=== PATIENT | male | born 1975 | race Caucasian/White ===

== ENCOUNTER 2019-02-14 08:53 | Day surgery (SDC) | payer OTHER ==
[2019-02-10 16:05] VITALS: BP 130/94
[2019-02-10 16:47] LABS: BASOPHIL # 0.1 10^3/uL (0.0-0.1); BASOPHIL % 0.6 % (0.0-0.2); EOSINOPHIL # 0.1 10^3/uL (0.0-0.2); EOSINOPHIL % 1.5 % (0.0-5.0); HEMOGLOBIN 18.7 g/dL (13.9-16.3); LYMPHOCYTES # 2.6 10^3/uL (1.0-4.8); LYMPHOCYTES % 26.8 % (24.0-44.0); MEAN CELL HGB 31.8 pg (26-34); MEAN CORP VOLUME 90.8 fL (78-100); MEAN PLATELET VOLUME 9.7 fL (7.8-11.0); MONOCYTES % 9.9 % (5.0-12.0); NEUTROPHIL # 5.9 10^3/uL (1.8-7.7); NEUTROPHILS % 60.9 % (41.0-85.0); RED CELL DISTRIBUTION WIDTH 14.3 % (11.5-14.5); WHITE BLOOD CELL 9.6 10^3/uL (4.5-11.0)
[2019-02-10 17:25] LABS: CALCIUM 9.3 mg/dL (8.4-10.5); CARBON DIOXIDE 23.2 mmol/L (20.0-32)
[~2019-02-14] VITALS: Ht 165.1 cm; Wt 72.6 kg
[2019-02-14] VITALS (10 sets, daily range): BP systolic 115–135; BP diastolic 48–96
[~2019-02-14 08:53] MED LIST: ALLERGY SHOT SQ; LACT1CAP PO; LACTATED RINGERS 1,000 ML ONE; MOVIPREP POWDER PACKET PO STA; TURM1CAP PO
[2019-02-14] MEDS: LACTATED RINGERS 1,000 ML IV SCH ×2 (09:09→13:48)
[2019-02-14] MEDS ORDERED: LIDOCAINE 2% VIAL ONE (11:21)
[2019-02-14] MEDS ORDERED: VERSED ONE (11:22)
[2019-02-14] MEDS ORDERED: DIPRIVAN IV ONE (11:22)
[2019-02-14] MEDS ORDERED: SUBLIMAZE ONE (11:22)
--- NOTE | 2019-02-14 12:36 | OPH ---
DATE OF SURGERY: 02/14/2019 BRIEF PROCEDURE NOTE PREOPERATIVE DIAGNOSES: History of colon polyps, need for surveillance as well as history of dyspepsia. POSTOPERATIVE DIAGNOSES: 1. Gastroduodenitis. 2. Inflamed colon, sigmoid and descending. 3. Check path on sigmoid polyps. SURGEON: Elvin Givens DO NAIL GALVANIZER: OR staff. ANESTHESIA: Total intravenous anesthesia by Tee Fish CRNA PROCEDURES PERFORMED: 1. Esophagogastroduodenoscopy with biopsy. 2. Flex sig 35 cm with cold forceps polypectomy in the sigmoid colon x 2. SPECIMENS: 1. Duodenal mucosa. 2. Gastric mucosa. 3. Sigmoid colon polyps, all to path. ESTIMATED BLOOD LOSS: 5 mL. COUNTS: At the completion of the case, counts were correct per OR staff. DESCRIPTION OF PROCEDURE: The patient is a 43-year-old male, known from previous evaluation. Prior to procedure, informed consent was obtained. At the time of procedure, he was taken to the operative suite and placed in supine position. After time-out was completed, he was placed in left lateral recumbent position. With excellent sedation, esophagogastroduodenoscope was advanced transorally with pneumoinsufflation distally in second portion of duodenum. Once the duodenum was adequately visualized, camera was slowly to facilitate visualization of the duodenal bulb. The duodenal bulb shows significant inflammation and small area of fibrinous tissue. Biopsies obtained of the duodenal mucosa. Camera was withdrawn to the level of the pylorus for further inflammation identified and biopsies were obtained. Retroflexed maneuver was performed. The cardia was within normal limits. Camera was reduced. Hemostasis noted to be good. The stomach decompressed. The scope was slowly withdrawn. Distal, mid and proximal esophagus were within normal limits. Vocal cords were visualized within normal limits. Camera was removed. Procedure was discontinued. The patient remained in the OR. Timeout was previously completed. With adequate sedation, rectal exam was performed. There were no masses. Next, the colonoscope was advanced transanally with pneumoinsufflation proximally. There was some redundancy in the mid and distal sigmoid colon. However, in the proximal sigmoid colon to the level of distal descending colon, there was noted to be significant inflammation that is concerning. Subsequently, the camera was slowly withdrawn to facilitate visualization of the distal portion of the sigmoid colon and in the rectum and the distal sigmoid colon, there were two separate small polyps identified and that was removed with cold forceps. Camera was withdrawn to the remainder of the distal sigmoid colon and the rectum to the level of 5 cm where it was retroflexed and reinserted. Anal verge was visualized within normal limits. Camera was reduced. Colon was decompressed. Colonoscope was removed. The patient tolerated this procedure well. There were no acute complications noted. Elvin Givens DO DR: GUILLE/svetlana JOB# [id number]
[2019-02-14] MEDS ORDERED: WATER ONE (13:07)
[2019-02-14] MEDS ORDERED: LACTATED RINGERS 1,000 ML ONE (13:44)
--- NOTE | 2019-02-14 14:57 | DIREP ---
PROCEDURE:CT ABD/PELVIS W/ CONTRAST TECHNIQUE:The patient drank oral contrast material. Following the intravenous administration of contrast material, venous phase cuts were obtained through the abdomen and pelvis. The images were viewed at lung and soft tissue settings. Sagittal and coronal reconstructions are provided. COMPARISON:None. INDICATIONS:Abd Pain FINDINGS: LOWER CHEST:The lung bases are clear. LIVER:There is generalized hypodensity of the liver, with focal sparing adjacent to the gallbladder fossa. BILIARY:Normal. PANCREAS:Normal. SPLEEN:Normal. URINARY TRACT:No urinary tract calculi are demonstrated. There is no hydronephrosis. ADRENALS:Normal. AORTA/VASCULAR:Normal. RETROPERITONEUM:Normal. BOWEL/MESENTERY:There are numerous diverticula of the sigmoid colon. There is mural thickening and pericolonic inflammation, suggesting diverticulitis. The vermiform appendix is visualized, and has a normal appearance. No bowel dilatation is identified. ABDOMINAL WALL:Normal. PELVIS:Normal. BONES:Normal. OTHER:Normal. CONCLUSION: 1. There is CT evidence to suggest sigmoid diverticulitis. Consider interval colonoscopy or barium enema follow-up after the acute illness has subsided to exclude underlying neoplasm. 2. Fatty liver. Dictated by: Magdy Finn III, MD on 02/14/2019 at 02:51 PM
== END 2019-02-14 15:42 | disposition home or self-care (01) | DRG 951 ==
LOC: SDC 08:53
PROVIDERS: ATTEND Surgery
DX: Z12.11 Encounter for screening for malignant neoplasm of colon (principal); K52.9 Noninfective gastroenteritis and colitis, unspecified; K29.90 Gastroduodenitis, unspecified, without bleeding; K29.80 Duodenitis without bleeding; K29.50 Unspecified chronic gastritis without bleeding; K63.5 Polyp of colon; E66.9 Obesity, unspecified; Z68.33 Body mass index [BMI] 33.0-33.9, adult; Z86.010 Personal history of colon polyps; Z82.5 Family history of asthma and other chronic lower respiratory diseases; Z83.3 Family history of diabetes mellitus; Z82.49 Family history of ischemic heart disease and other diseases of the circulatory system
CPT/HCPCS: 36415; 43239; 45380; 74177; 80053; 85025; 85610; 85730; 88305 ×2; J2001; J2250; J3010; J3490; J7120 ×2; Q9963; Q9965

== ENCOUNTER → 2019-04-06 | Outpatient (CLI) | payer OTHER ==
[~2019-04-06] MED LIST changes: -LACTATED RINGERS 1,000 ML ONE; -MOVIPREP POWDER PACKET PO STA
[2019-04-06 16:30] LABS: BASOPHIL # 0.1 10^3/uL (0.0-0.1); BASOPHIL % 0.8 % (0.0-0.2); EOSINOPHIL # 0.2 10^3/uL (0.0-0.2); EOSINOPHIL % 2.1 % (0.0-5.0); HEMOGLOBIN 18.1 g/dL (13.9-16.3); LYMPHOCYTES # 2.8 10^3/uL (1.0-4.8); MEAN CELL HGB 32.1 pg (26-34); MEAN CELL HGB CONCENTRATION 35.1 g/dL (33-37); MEAN CORP VOLUME 91.5 fL (78-100); MEAN PLATELET VOLUME 9.3 fL (7.8-11.0); MONOCYTES # 0.9 10^3/uL (0.3-0.8); MONOCYTES % 9.8 % (5.0-12.0); RED CELL DISTRIBUTION WIDTH 14.8 % (11.5-14.5); WHITE BLOOD CELL 8.9 10^3/uL (4.5-11.0)
[2019-04-06 16:51] LABS: CALCIUM 9.2 mg/dL (8.4-10.5); CARBON DIOXIDE 26.8 mmol/L (20.0-32)
== END | disposition home or self-care (01) ==
LOC: LAB 16:11
PROVIDERS: ATTEND Surgery
DX: K57.32 Diverticulitis of large intestine without perforation or abscess without bleeding (principal)
CPT/HCPCS: 36415; 80053; 85025

== ENCOUNTER → 2019-04-11 | Outpatient (CLI) | payer OTHER ==
--- NOTE | 2019-04-11 17:57 | DIREP ---
PROCEDURE:CT ABDOMEN/PELVIS W/ CONTRAST COMPARISON:[facility], CT, CT ABD/PELVIS W/ CONTRAST, 02/14/2019, 02:17 PM. INDICATIONS:K57.32 DIVERTICULITIS OF LARGE INTESTINE TECHNIQUE:Axial images were created through the abdomen and pelvis with non-ionic intravenous contrast material. Oral contrast was administered. Sagittal and coronal reconstructions were performed from source images. FINDINGS: LUNG BASES:Normal. No visible pulmonary or pleural disease. LIVER:Diffuse fatty liver BILIARY:Normal. No visible dilatation or calcification. PANCREAS:Normal. No lesion, fluid collection, ductal dilatation, or atrophy. SPLEEN:Normal. No enlargement or focal lesion. ADRENALS:Normal. No mass or enlargement. URINARY TRACT:Normal. No focal lesions or hydronephrosis. AORTA/VASCULAR:Normal. No aneurysm. RETROPERITONEUM:Normal. No mass or adenopathy. BOWEL/MESENTERY:No free air. No evidence of bowel obstruction. Normal appendix. There are multiple sigmoid diverticuli. There are findings of sigmoid mucosal thickening, and minimal stranding. Tiny amounts of extraluminal air. Findings are partially improved when compared with previous examination ABDOMINAL WALL:Normal. No mass or hernia. PELVIC ORGANS:Normal. No visible mass. Pelvic organs appropriate for patient age. BONES:Normal for age. No bony lesion or acute fracture. OTHER:Negative. CONCLUSION:Findings in keeping with diverticulitis, partially improving when compared with February 14 examination. No free air. No discrete abscess, Fatty liver Dictated by: Evin Javier MD on 04/11/2019 at 05:54 PM
== END | disposition home or self-care (01) ==
LOC: RAD 08:37
PROVIDERS: ATTEND Surgery
DX: K57.32 Diverticulitis of large intestine without perforation or abscess without bleeding (principal)
CPT/HCPCS: 74177; Q9965